=== PATIENT | female | born 1995 | race Two or more races ===

== ENCOUNTER 2018-06-03 15:44 | Emergency (ER) | payer MEDICAID ==
[~2018-06-03] VITALS: Ht 154.9 cm; Wt 74.1 kg
[~2018-06-03 15:44] MED LIST: AMOX-580 PO; HYDR-4383 PO; IBUP-1984 PO; LEG1EACH99 MC; NO HOME MEDS; PHEN-786 PO
[2018-06-03 17:09] LABS: BASOPHILS % (AUTO) 0.1 % (0-1); EOSINOPHILS # (AUTO) 0.1 X10'3 (0-0.9); EOSINOPHILS % (AUTO) 1.5 % (0-6); HEMATOCRIT 42.4 % (35.0-45.0); HEMOGLOBIN 14.4 g/dl (12.0-16.0); LYMPHOCYTES # (AUTO) 2.3 X10'3 (1.1-4.8); LYMPHOCYTES % (AUTO) 26.5 % (21-51); MEAN CORPUSCULAR HEMOGLOBIN 31.9 PG (27.0-31.0); MEAN CORPUSCULAR VOLUME 93.8 FL (78-98); MEAN PLATELET VOLUME 8.3 FL (7.4-10.4); MONOCYTES # (AUTO) 0.5 X10'3 (0-0.9); MONOCYTES % (AUTO) 5.2 % (2-12); NEUTROPHILS # (AUTO) 5.9 X10'3 (1.8-7.7); NEUTROPHILS % (AUTO) 66.7 % (42-75); PLATELET COUNT 248 X10'3 (140-440); RED BLOOD COUNT 4.52 X10'6 (4.20-5.60); RED CELL DISTRIBUTION WIDTH 13.1 % (11.5-14.5); WHITE BLOOD COUNT 8.8 X10'3 (4.5-11.0)
[2018-06-03 17:14] LABS: URINE HCG NEGATIVE (NEG)
[2018-06-03 17:18] LABS: CLARITY,URINE SLIGHTLY CLOUDY (Clear); COLOR,URINE STRAW (Yellow); GLUCOSE, URINE NEGATIVE (Neg); KETONES,URINE TRACE mg/dl (Neg); LEUKOCYTE ESTERASE ,URINE NEGATIVE (Neg); NITRITES, URINE NEGATIVE (Neg); OCCULT BLOOD,URINE NEGATIVE (Neg); PROTEIN,URINE NEGATIVE (Neg); UROBILINOGEN,URINE 0.2 E.U/dL (0.2-1.0)
[2018-06-03 17:19] LABS: UA COLLECTION TYPE CLN CATCH MIDSTREAM
[2018-06-03 17:26] LABS: MUCUS STRANDS MODERATE /LPF (Neg); SQUAMOUS EPITHELIAL CELL,UR MODERATE /LPF (FEW)
[2018-06-03 17:27] LABS: BACTERIA,URINE 1+ /HPF (Neg); RBC,URINE 0-2 /HPF (0-2); WBC,URINE 0-4 /HPF (0-4)
[2018-06-03 17:29] LABS: ALANINE AMINOTRANSFERASE 20 U/L (12-78); ALBUMIN 4.3 G/DL (3.4-5.0); ALKALINE PHOSPHATASE 60 IU/L (46-116); ANION GAP 12 (8-16); ASPARTATE AMINO TRANSFERASE 15 U/L (10-37); BILIRUBIN,TOTAL 0.6 MG/DL (0.1-1.0); BLOOD UREA NITROGEN 12 MG/DL (7-18); BUN/CREATININE RATIO 13.6 (6.6-38.0); CALCIUM 9.1 MG/DL (8.5-10.1); CHLORIDE 100 MMOL/L (99-107); CREATININE 0.88 MG/DL (0.40-0.90); GLUCOSE 93 MG/DL (70-104); POTASSIUM 3.4 MMOL/L (3.5-5.1); SODIUM 135 MMOL/L (135-145); TOTAL CARBON DIOXIDE 22.6 MMOL/L (24-32); TOTAL PROTEIN 8.6 G/DL (6.4-8.2); eGFR 78 ML/MIN
[2018-06-03 17:42] LABS: PROTHROMBIN TIME 10.5 SECONDS (9.0-12.0)
[2018-06-03] MEDS ORDERED: SULF1TAB49 PO (18:57)
[2018-06-03] MEDS ORDERED: CEPH-572 PO (18:57)
[2018-06-03] MEDS ORDERED: HYDROcodone/acetaminophen 5mg/325mg tablet PO ONE (19:20)
[2018-06-03] MEDS ORDERED: IBUP-1985 PO (19:46)
[2018-06-03 19:54] VITALS: BP 130/71
[2018-06-03] MEDS ORDERED: HYDR-3965 PO (19:54)
== END 2018-06-03 19:56 | disposition home or self-care (01) ==
LOC: ER 15:50
DX: M94.0 Chondrocostal junction syndrome [Tietze] (principal); F12.90 Cannabis use, unspecified, uncomplicated; Z79.899 Other long term (current) drug therapy
CPT/HCPCS: 36415; 71045; 80053; 81001; 81025; 85025; 85610; 93005; 99284

== ENCOUNTER 2018-09-08 12:01 | Emergency (ER) | payer MEDICAID ==
[~2018-09-08] VITALS: Ht 154.9 cm; Wt 64.0 kg
[~2018-09-08 12:01] MED LIST changes: +IBUP-1985 PO
[2018-09-08 12:11] VITALS: BP 147/83
[2018-09-08] MEDS ORDERED: AMOX500C2 PO (13:05)
[2018-09-08] MEDS ORDERED: TRAM50TA2 PO (13:05)
[2018-09-08] MEDS ORDERED: CHLO473M3 PO (13:05)
== END 2018-09-08 13:20 | disposition home or self-care (01) ==
LOC: ER 12:01
DX: S03.2XXA Dislocation of tooth, initial encounter (principal); F12.90 Cannabis use, unspecified, uncomplicated; Z98.890 Other specified postprocedural states; Z79.899 Other long term (current) drug therapy; W22.8XXA Striking against or struck by other objects, initial encounter; Y93.89 Activity, other specified; Y92.89 Other specified places as the place of occurrence of the external cause; Y99.8 Other external cause status
CPT/HCPCS: 99283

== ENCOUNTER 2019-05-01 17:03 | Emergency (ER) | payer MEDICAID ==
[~2019-05-01] VITALS: Ht 154.9 cm; Wt 70.9 kg
[~2019-05-01 17:03] MED LIST changes: +CHLO473M3 PO
[2019-05-01 17:34] VITALS: BP 121/75
[2019-05-01 19:53] LABS: ALANINE AMINOTRANSFERASE 53 U/L (12-78); ALBUMIN 3.6 G/DL (3.4-5.0); ALBUMIN/GLOBULIN RATIO 0.9 (1.1-1.5); ALKALINE PHOSPHATASE 99 IU/L (46-116); ANION GAP 5 (8-16); ASPARTATE AMINO TRANSFERASE 26 U/L (10-37); BASOPHILS % (AUTO) 0.4 % (0-1); BILIRUBIN,TOTAL 0.3 MG/DL (0.1-1.0); BLOOD UREA NITROGEN 19 MG/DL (7-18); BUN/CREATININE RATIO 20.4 (6.6-38.0); CALCIUM 9.3 MG/DL (8.5-10.1); CHLORIDE 104 MMOL/L (99-107); CREATININE 0.93 MG/DL (0.40-0.90); EOSINOPHILS # (AUTO) 0.2 X10'3 (0-0.9); EOSINOPHILS % (AUTO) 2.5 % (0-6); GLUCOSE 88 MG/DL (70-104); HEMOGLOBIN 13.3 g/dl (12.0-16.0); LYMPHOCYTES # (AUTO) 3.1 X10'3 (1.1-4.8); LYMPHOCYTES % (AUTO) 42.7 % (21-51); MEAN CORPUSCULAR HEMOGLOBIN 32.1 PG (27.0-31.0); MEAN CORPUSCULAR HGB CONC 33.3 g/dL (33.0-36.5); MEAN CORPUSCULAR VOLUME 96.3 FL (78-98); MEAN PLATELET VOLUME 7.8 FL (7.4-10.4); MONOCYTES # (AUTO) 0.3 X10'3 (0-0.9); MONOCYTES % (AUTO) 4.5 % (2-12); NEUTROPHILS # (AUTO) 3.7 X10'3 (1.8-7.7); NEUTROPHILS % (AUTO) 49.9 % (42-75); PLATELET COUNT 350 X10'3 (140-440); POTASSIUM 4.2 MMOL/L (3.5-5.1); RED BLOOD COUNT 4.15 X10'6 (4.20-5.60); SODIUM 138 MMOL/L (135-145); TOTAL CARBON DIOXIDE 29.5 MMOL/L (24-32); TOTAL PROTEIN 7.8 G/DL (6.4-8.2); WHITE BLOOD COUNT 7.3 X10'3 (4.5-11.0); eGFR 73 ML/MIN
[2019-05-01 20:34] LABS: CLARITY,URINE CLEAR (Clear); COLOR,URINE STRAW (Yellow); GLUCOSE, URINE NEGATIVE (Neg); KETONES,URINE NEGATIVE (Neg); LEUKOCYTE ESTERASE ,URINE LARGE (Neg); NITRITES, URINE NEGATIVE (Neg); OCCULT BLOOD,URINE LARGE (Neg); PROTEIN,URINE NEGATIVE (Neg); UROBILINOGEN,URINE 0.2 E.U/dL (0.2-1.0)
[2019-05-01 20:35] LABS: UA COLLECTION TYPE CLN CATCH MIDSTREAM
[2019-05-01 21:19] LABS: BACTERIA,URINE FEW /HPF (Neg); MUCUS STRANDS FEW /LPF (Neg); RBC,URINE 0-2 /HPF (0-2); SQUAMOUS EPITHELIAL CELL,UR FEW /LPF (FEW)
== END 2019-05-01 20:59 | disposition home or self-care (01) ==
LOC: ER 17:04
DX: O90.89 Other complications of the puerperium, not elsewhere classified (principal); R51 Headache; R20.0 Anesthesia of skin; F12.90 Cannabis use, unspecified, uncomplicated; Z87.820 Personal history of traumatic brain injury
CPT/HCPCS: 36415; 80053; 81001; 85025; 99283

== ENCOUNTER 2019-06-29 15:50 | Emergency (ER) | payer MEDICAID ==
[~2019-06-29] VITALS: Ht 154.9 cm; Wt 72.7 kg
[2019-06-29 16:12] VITALS: BP 126/70
[2019-06-29 18:03] LABS: URINE HCG NEGATIVE (NEG)
[2019-06-29 18:07] LABS: CLARITY,URINE CLEAR (Clear); COLOR,URINE YELLOW (Yellow); GLUCOSE, URINE NEGATIVE (Neg); KETONES,URINE NEGATIVE (Neg); LEUKOCYTE ESTERASE ,URINE NEGATIVE (Neg); NITRITES, URINE NEGATIVE (Neg); OCCULT BLOOD,URINE NEGATIVE (Neg); PH,URINE 6.5 (4.8-8.0); PROTEIN,URINE NEGATIVE (Neg)
[2019-06-29 18:09] LABS: UA COLLECTION TYPE CLN CATCH MIDSTREAM
== END 2019-06-29 18:48 | disposition home or self-care (01) ==
LOC: ER 15:51
DX: R10.2 Pelvic and perineal pain (principal); F12.90 Cannabis use, unspecified, uncomplicated
CPT/HCPCS: 36415; 81003; 81025; 87210; 87491; 87591; 99283; Q0112

== ENCOUNTER 2019-10-29 16:12 | Emergency (ER) | payer MEDICAID, OTHER ==
[~2019-10-29] VITALS: Ht 154.9 cm; Wt 80.0 kg
[2019-10-29] MEDS ORDERED: orphenadrine citrate 60mg/2ml inj. IM ONE (16:40)
[2019-10-29] MEDS ORDERED: ketorolac tromethamine 15mg/ml inj. IM ONE (16:40)
[2019-10-29 16:56] VITALS: BP 134/97
[2019-10-29] MEDS ORDERED: ondansetron 4mg rapidly disintigrating tab PO ONE (18:35)
[2019-10-29] MEDS ORDERED: morphine 4 MG/ML inj SYRINge IM ONE (18:35)
[2019-10-29] MEDS ORDERED: ORPH100T2 PO (19:35)
[2019-10-29] MEDS ORDERED: IBUP-1984 PO (19:35)
== END 2019-10-29 19:58 | disposition home or self-care (01) ==
LOC: ER 16:12
DX: S16.1XXA Strain of muscle, fascia and tendon at neck level, initial encounter (principal); M79.601 Pain in right arm; M54.2 Cervicalgia; F12.90 Cannabis use, unspecified, uncomplicated; Z98.890 Other specified postprocedural states; Z79.2 Long term (current) use of antibiotics; Z79.899 Other long term (current) drug therapy; W18.39XA Other fall on same level, initial encounter; Y93.89 Activity, other specified; Y92.89 Other specified places as the place of occurrence of the external cause; Y99.8 Other external cause status
CPT/HCPCS: 72125; 72141; 96372; 99285; J1885; J2270; J2360

== ENCOUNTER 2020-03-16 12:38 | Emergency (ER) | payer MEDICAID, OTHER ==
[~2020-03-16] VITALS: Ht 160 cm; Wt 80.0 kg
[~2020-03-16 12:38] MED LIST changes: +ORPH100T2 PO
[2020-03-16 13:16] VITALS: BP 132/83
[2020-03-16] MEDS ORDERED: AMOX-422 PO (13:45)
== END 2020-03-16 14:15 | disposition home or self-care (01) ==
LOC: ER 12:39
DX: J06.9 Acute upper respiratory infection, unspecified (principal); H66.91 Otitis media, unspecified, right ear; F12.90 Cannabis use, unspecified, uncomplicated; Z20.828 Contact with and (suspected) exposure to other viral communicable diseases; Z98.890 Other specified postprocedural states; Z79.899 Other long term (current) drug therapy
CPT/HCPCS: 36415; 87635; 99283

== ENCOUNTER 2021-02-11 12:10 | Emergency (ER) | payer MEDICAID ==
[~2021-02-11] VITALS: Ht 154.9 cm; Wt 72.7 kg
[2021-02-11 12:16] VITALS: BP 140/71
[2021-02-11] MEDS ORDERED: DOXY1TAB3 PO (13:32)
[2021-02-11] MEDS ORDERED: ondansetron 4mg rapidly disintigrating tab PO ONE (13:35)
== END 2021-02-11 13:42 | disposition home or self-care (01) ==
LOC: ER 12:11
DX: O21.9 Vomiting of pregnancy, unspecified (principal); O26.891 Other specified pregnancy related conditions, first trimester; R10.9 Unspecified abdominal pain; O99.321 Drug use complicating pregnancy, first trimester; F12.90 Cannabis use, unspecified, uncomplicated; Z79.899 Other long term (current) drug therapy; Z3A.01 Less than 8 weeks gestation of pregnancy
CPT/HCPCS: 99283

== ENCOUNTER 2021-02-23 19:30 | Emergency (ER) | payer MEDICAID ==
[~2021-02-23] VITALS: Ht 154.9 cm; Wt 72.7 kg
[~2021-02-23 19:30] MED LIST changes: +DOXY1TAB3 PO
[2021-02-23 21:24] LABS: BASOPHILS % (AUTO) 0.2 % (0-1); EOSINOPHILS % (AUTO) 0.2 % (0-6); HEMATOCRIT 39.6 % (35.0-45.0); HEMOGLOBIN 13.3 g/dl (12.0-16.0); LYMPHOCYTES # (AUTO) 1.6 X10'3 (1.1-4.8); LYMPHOCYTES % (AUTO) 16.2 % (21-51); MEAN CORPUSCULAR HEMOGLOBIN 31.6 PG (27.0-31.0); MEAN CORPUSCULAR HGB CONC 33.5 g/dL (33.0-36.5); MEAN CORPUSCULAR VOLUME 94.6 FL (78-98); MEAN PLATELET VOLUME 8.7 FL (7.4-10.4); MONOCYTES # (AUTO) 0.7 X10'3 (0-0.9); MONOCYTES % (AUTO) 7.6 % (2-12); NEUTROPHILS # (AUTO) 7.4 X10'3 (1.8-7.7); NEUTROPHILS % (AUTO) 75.8 % (42-75); PLATELET COUNT 274 X10'3 (140-440); RED BLOOD COUNT 4.19 X10'6 (4.20-5.60); RED CELL DISTRIBUTION WIDTH 12.6 % (11.5-14.5); WHITE BLOOD COUNT 9.8 X10'3 (4.5-11.0)
[2021-02-23 21:35] LABS: ANION GAP 15 (8-16); BLOOD UREA NITROGEN 9 MG/DL (7-18); BUN/CREATININE RATIO 13.2 (6.6-38.0); CHLORIDE 102 MMOL/L (99-107); CREATININE 0.68 MG/DL (0.40-0.90); GLUCOSE 103 MG/DL (70-104); POTASSIUM 3.4 MMOL/L (3.5-5.1); SODIUM 140 MMOL/L (135-145)
[2021-02-23 21:36] LABS: ALANINE AMINOTRANSFERASE 141 U/L (12-78); ALBUMIN 3.8 G/DL (3.4-5.0); ALBUMIN/GLOBULIN RATIO 0.8 (1.1-1.5); ALKALINE PHOSPHATASE 57 IU/L (46-116); ASPARTATE AMINO TRANSFERASE 47 U/L (10-37); BILIRUBIN,TOTAL 0.5 MG/DL (0.1-1.0); CALCIUM 9.4 MG/DL (8.5-10.1); TOTAL PROTEIN 8.4 G/DL (6.4-8.2); eGFR > 90 ML/MIN
[2021-02-23 23:17] LABS: URINE HCG POSITIVE (NEG)
[2021-02-23 23:20] LABS: CLARITY,URINE SLIGHTLY CLOUDY (Clear); COLOR,URINE YELLOW (Yellow); UA COLLECTION TYPE CLN CATCH MIDSTREAM
[2021-02-23 23:22] LABS: GLUCOSE, URINE NEGATIVE (Neg); KETONES,URINE 80 mg/dl (Neg); NITRITES, URINE NEGATIVE (Neg); OCCULT BLOOD,URINE NEGATIVE (Neg); PROTEIN,URINE NEGATIVE (Neg)
[2021-02-23 23:23] LABS: BACTERIA,URINE FEW /HPF (Neg); LEUKOCYTE ESTERASE ,URINE NEGATIVE (Neg); RBC,URINE 0-2 /HPF (0-2); SQUAMOUS EPITHELIAL CELL,UR MODERATE /LPF (FEW); UROBILINOGEN,URINE >=8.0 E.U/dL (0.2-1.0); WBC,URINE 0-4 /HPF (0-4)
[2021-02-23] MEDS ORDERED: ONDA4TAB6 PO (23:26)
[2021-02-23] MEDS ORDERED: potassium Cl 20 mEq SR tablet PO ONE (23:30)
[2021-02-23] MEDS ORDERED: ondansetron 4mg rapidly disintigrating tab PO ONE (23:35)
[2021-02-23 23:53] VITALS: BP 145/98
== END 2021-02-23 23:55 | disposition home or self-care (01) ==
LOC: ER 19:30
DX: O21.9 Vomiting of pregnancy, unspecified (principal); O26.891 Other specified pregnancy related conditions, first trimester; R07.89 Other chest pain; Z3A.01 Less than 8 weeks gestation of pregnancy
CPT/HCPCS: 36415; 71045; 80053; 81001; 81025; 84484; 85025; 93005; 99285

== ENCOUNTER 2021-08-25 22:57 | Emergency (ER) | payer MEDICAID ==
[~2021-08-25] VITALS: Ht 154.9 cm; Wt 72.0 kg
[~2021-08-25 22:57] MED LIST changes: +ONDA4TAB6 PO
[2021-08-26] MEDS ORDERED: amoxicillin 250mg capsule PO ONE
[2021-08-26] MEDS ORDERED: acetaminophen 325mg tablet PO ONE
[2021-08-26] MEDS ORDERED: ketorolac trometh inj. 60 MG/2 ML VIAL IM ONE
[2021-08-26] MEDS ORDERED: ondansetron 4mg rapidly disintigrating tab PO ONE
[2021-08-26] MEDS ORDERED: HYDROcodone/acetaminophen 5mg/325mg tablet PO ONE
[2021-08-26] MEDS ORDERED: AMOX500C2 PO (00:01)
[2021-08-26 00:20] VITALS: BP 130/98
[2021-08-26] MEDS ORDERED: AMOX-117 PO (23:19)
[2021-08-26] MEDS ORDERED: ONDA4TAB12 PO (23:21)
== END 2021-08-26 00:23 | disposition home or self-care (01) ==
LOC: ER 22:57
DX: K08.89 Other specified disorders of teeth and supporting structures (principal); F12.90 Cannabis use, unspecified, uncomplicated; Z98.890 Other specified postprocedural states; Z79.2 Long term (current) use of antibiotics; Z79.899 Other long term (current) drug therapy
CPT/HCPCS: 96372; 99284; J1885

== ENCOUNTER 2021-08-26 21:56 | Emergency (ER) | payer MEDICAID ==
[~2021-08-26] VITALS: Ht 154.9 cm; Wt 91.2 kg
[~2021-08-26 21:56] MED LIST changes: +AMOX500C2 PO
[2021-08-26] MEDS ORDERED: ondansetron 4mg rapidly disintigrating tab PO ONE (22:20)
[2021-08-26] MEDS ORDERED: ondansetron 4mg rapidly disintigrating tab ONE (22:20)
[2021-08-26] MEDS ORDERED: proCHLORperazine 10 MG/2 ml inj IV ONE (22:40)
[2021-08-26] MEDS ORDERED: methylPREDNISolone sod succ 125mg/2ml vial IV ONE (22:40)
[2021-08-26] MEDS ORDERED: normal saline 1000ml 1,000 ML IV ONE (22:40)
[2021-08-26] MEDS ORDERED: morphine 4 MG/ML inj SYRINge IV ONE (22:40)
[2021-08-26] MEDS ORDERED: dexamethasone sod phosphate 10mg/ml inj IV STA (22:52)
[2021-08-26] MEDS ORDERED: AMOX-117 PO (23:19)
[2021-08-26] MEDS ORDERED: ONDA4TAB12 PO (23:21)
[2021-08-26] MEDS ORDERED: amox tr/potassium clavulanate 875/125mg TAB PO ONE (23:25)
[2021-08-27 00:04] VITALS: BP 141/91
== END 2021-08-27 00:08 | disposition home or self-care (01) ==
LOC: ER 21:57
DX: K08.89 Other specified disorders of teeth and supporting structures (principal); R11.2 Nausea with vomiting, unspecified; F12.90 Cannabis use, unspecified, uncomplicated; Z98.890 Other specified postprocedural states; Z79.2 Long term (current) use of antibiotics; Z79.899 Other long term (current) drug therapy
CPT/HCPCS: 96361; 96374; 96375; 99284; J0780; J1100; J2270; J7030

== ENCOUNTER 2022-01-18 20:47 | Emergency (ER) | payer MEDICAID ==
[~2022-01-18 20:47] MED LIST changes: -AMOX500C2 PO; +ONDA4TAB12 PO
== END 2022-01-18 21:33 | disposition left against medical advice (07) ==
LOC: ER 20:47
DX: R05.9 Cough, unspecified (principal); Z53.21 Procedure and treatment not carried out due to patient leaving prior to being seen by health care provider

== ENCOUNTER 2022-04-02 23:07 | Emergency (ER) | payer MEDICAID ==
[~2022-04-02] VITALS: Ht 154.9 cm; Wt 72.7 kg
[2022-04-03 02:44] LABS: CLARITY,URINE SLIGHTLY CLOUDY (Clear); COLOR,URINE YELLOW (Yellow); GLUCOSE, URINE NEGATIVE (Neg); KETONES,URINE >=80 mg/dl (Neg); LEUKOCYTE ESTERASE ,URINE NEGATIVE (Neg); NITRITES, URINE NEGATIVE (Neg); OCCULT BLOOD,URINE MODERATE (Neg); PROTEIN,URINE NEGATIVE (Neg); UROBILINOGEN,URINE 0.2 E.U/dL (0.2-1.0)
[2022-04-03 02:45] LABS: UA COLLECTION TYPE CLN CATCH MIDSTREAM; URINE HCG NEGATIVE (NEG)
[2022-04-03 02:53] LABS: BACTERIA,URINE 1+ /HPF (Neg); RBC,URINE 0-2 /HPF (0-2); WBC,URINE 0-4 /HPF (0-4)
[2022-04-03 02:54] LABS: MUCUS STRANDS FEW /LPF (Neg); SQUAMOUS EPITHELIAL CELL,UR MANY /LPF (FEW)
[2022-04-03] MEDS ORDERED: cyclobenzaprine 10mg tablet PO ONE (04:25)
[2022-04-03] MEDS ORDERED: morphine 4 MG/ML inj SYRINge IM ONE (04:25)
[2022-04-03] MEDS ORDERED: CYCL-1 PO (06:02)
[2022-04-03 06:23] VITALS: BP 157/86
== END 2022-04-03 06:27 | disposition home or self-care (01) ==
LOC: ER 23:07
DX: S39.012A Strain of muscle, fascia and tendon of lower back, initial encounter (principal); I10 Essential (primary) hypertension; F41.9 Anxiety disorder, unspecified; F12.90 Cannabis use, unspecified, uncomplicated; Z98.890 Other specified postprocedural states; Z79.2 Long term (current) use of antibiotics; Z79.899 Other long term (current) drug therapy; X58.XXXA Exposure to other specified factors, initial encounter; Y93.89 Activity, other specified; Y92.89 Other specified places as the place of occurrence of the external cause; Y99.8 Other external cause status
CPT/HCPCS: 81001; 81025; 96372; 99285; J2270

== ENCOUNTER 2022-06-10 17:39 | Emergency (ER) | payer MEDICAID ==
[~2022-06-10] VITALS: Ht 154.9 cm; Wt 82.0 kg
[~2022-06-10 17:39] MED LIST changes: +CYCL-1 PO
[2022-06-10 17:47] VITALS: BP 137/82
[2022-06-10] MEDS ORDERED: CEPH-585 PO (18:58)
[2022-06-10] MEDS ORDERED: bacitracin 15gm ointment TP ONE (19:00)
[2022-06-10] MEDS ORDERED: cephalexin 250mg capsule PO ONE (19:00)
== END 2022-06-10 19:18 | disposition home or self-care (01) ==
LOC: ER 17:40
DX: L02.211 Cutaneous abscess of abdominal wall (principal); I10 Essential (primary) hypertension; F41.9 Anxiety disorder, unspecified; F12.90 Cannabis use, unspecified, uncomplicated; Z98.890 Other specified postprocedural states; Z79.899 Other long term (current) drug therapy
CPT/HCPCS: 99283

== ENCOUNTER 2023-01-27 21:17 | Emergency (ER) | payer MEDICAID ==
[~2023-01-27] VITALS: Ht 154.9 cm; Wt 89.0 kg
[~2023-01-27 21:17] MED LIST changes: +CEPH-585 PO; -ORPH100T2 PO; +ORPH100T4 PO
[2023-01-27 21:23] VITALS: TEMP 99.8
[2023-01-27 21:53] LABS: BASOPHILS % (AUTO) 0.4 % (0-1); EOSINOPHILS # (AUTO) 0.1 X10'3 (0-0.9); EOSINOPHILS % (AUTO) 1.8 % (0-6); HEMATOCRIT 40.3 % (35.0-45.0); HEMOGLOBIN 13.5 g/dl (12.0-16.0); LYMPHOCYTES # (AUTO) 1.6 X10'3 (1.1-4.8); LYMPHOCYTES % (AUTO) 30.3 % (21-51); MEAN CORPUSCULAR HGB CONC 33.6 g/dL (33.0-36.5); MEAN CORPUSCULAR VOLUME 92.3 FL (78-98); MEAN PLATELET VOLUME 8.1 FL (7.4-10.4); MONOCYTES # (AUTO) 0.7 X10'3 (0-0.9); MONOCYTES % (AUTO) 12.8 % (2-12); NEUTROPHILS # (AUTO) 2.9 X10'3 (1.8-7.7); NEUTROPHILS % (AUTO) 54.7 % (42-75); PLATELET COUNT 259 X10'3 (140-440); RED BLOOD COUNT 4.37 X10'6 (4.20-5.60); WHITE BLOOD COUNT 5.4 X10'3 (4.5-11.0)
[2023-01-27 22:02] LABS: ALANINE AMINOTRANSFERASE 25 U/L (12-78); ALBUMIN 3.7 G/DL (3.4-5.0); ALBUMIN/GLOBULIN RATIO 0.9 (1.1-1.5); ALKALINE PHOSPHATASE 79 IU/L (46-116); ANION GAP 10 (8-16); ASPARTATE AMINO TRANSFERASE 15 U/L (10-37); BILIRUBIN,TOTAL 0.4 MG/DL (0.1-1.0); BLOOD UREA NITROGEN 9 MG/DL (7-18); CALCIUM 9.5 MG/DL (8.5-10.1); CHLORIDE 102 MMOL/L (99-107); GLUCOSE 107 MG/DL (70-104); POTASSIUM 3.2 MMOL/L (3.5-5.1); SODIUM 140 MMOL/L (135-145); TOTAL CARBON DIOXIDE 27.7 MMOL/L (24-32); eCRCL 63 ML/MIN; eGFR 66 ML/MIN
[2023-01-27 22:10] LABS: PRO BRAIN NATRIURETIC PEPTIDE 119 PG/ML (0-125)
[2023-01-27] MEDS ORDERED: benzonatate 100mg capsule PO ONE (22:30)
[2023-01-27] MEDS ORDERED: ondansetron 4mg rapidly disintigrating tab PO ONE (22:30)
[2023-01-27] MEDS ORDERED: ketorolac trometh. 30mg/ml inj. IM ONE (22:30)
[2023-01-28] MEDS ORDERED: NIRM1TAB PO (00:11)
[2023-01-28 00:44] VITALS: BP 124/75; PULSE 90; O2SAT 98
[2023-01-28 00:47] VITALS: RESP 18
== END 2023-01-28 00:48 | disposition home or self-care (01) ==
LOC: ER 21:18
DX: U07.1 COVID-19 (principal); J02.9 Acute pharyngitis, unspecified; I10 Essential (primary) hypertension; F12.90 Cannabis use, unspecified, uncomplicated; Z88.0 Allergy status to penicillin; Z79.1 Long term (current) use of non-steroidal anti-inflammatories (NSAID); Z79.2 Long term (current) use of antibiotics; Z79.899 Other long term (current) drug therapy
CPT/HCPCS: 36415; 71045; 80053; 83880; 84484; 85025; 87502; 87503; 87811; 93005; 96372; 99285; J1885

== ENCOUNTER 2023-05-25 20:38 | Emergency (ER) | payer MEDICAID ==
[~2023-05-25] VITALS: Ht 154.9 cm; Wt 68.2 kg
[~2023-05-25 20:38] MED LIST changes: +NIRM1TAB PO
[2023-05-25] MEDS ORDERED: CLIN300C3 PO (21:51)
[2023-05-25] MEDS ORDERED: clindamycin (21:51)
[2023-05-25] MEDS ORDERED: clindamycin 150mg capsule PO ONE (21:55)
[2023-05-25] MEDS ORDERED: acetaminophen 325mg tablet PO ONE (22:15)
[2023-05-25 22:27] VITALS: BP 132/89; PULSE 90; RESP 16; TEMP 98.1; O2SAT 98
== END 2023-05-25 22:30 | disposition home or self-care (01) ==
LOC: ER 20:39
DX: K08.89 Other specified disorders of teeth and supporting structures (principal); I10 Essential (primary) hypertension; F12.90 Cannabis use, unspecified, uncomplicated; Z98.890 Other specified postprocedural states; Z79.899 Other long term (current) drug therapy; Z79.2 Long term (current) use of antibiotics
CPT/HCPCS: 99283

== ENCOUNTER 2023-06-02 18:11 | Emergency (ER) | payer MEDICAID ==
[~2023-06-02] VITALS: Ht 154.9 cm; Wt 72.7 kg
[~2023-06-02 18:11] MED LIST changes: +CLIN300C3 PO; +clindamycin
[2023-06-02 18:41] VITALS: BP 139/82; PULSE 74; RESP 16; TEMP 98.5; O2SAT 100
[2023-06-02 21:27] LABS: URINE HCG NEGATIVE (NEG)
[2023-06-02 21:29] LABS: BILIRUBIN,URINE NEGATIVE (Neg); CLARITY,URINE TURBID (Clear); COLOR,URINE YELLOW (Yellow); GLUCOSE, URINE NEGATIVE (Neg); KETONES,URINE NEGATIVE (Neg); LEUKOCYTE ESTERASE ,URINE NEGATIVE (Neg); NITRITES, URINE NEGATIVE (Neg); OCCULT BLOOD,URINE SMALL (Neg); PROTEIN,URINE NEGATIVE (Neg); UROBILINOGEN,URINE 0.2 E.U/dL (0.2-1.0)
[2023-06-02 21:35] LABS: UA COLLECTION TYPE CLN CATCH MIDSTREAM
[2023-06-02 21:37] LABS: SQUAMOUS EPITHELIAL CELL,UR FEW /LPF (FEW)
[2023-06-02 21:39] LABS: AMORPHOUS URATES 4+; BACTERIA,URINE 1+ /HPF (Neg); RBC,URINE 0-2 /HPF (0-2); WBC,URINE 0-4 /HPF (0-4)
[2023-06-02] MEDS ORDERED: acetaminophen 325mg tablet PO ONE (22:55)
== END 2023-06-02 23:19 | disposition home or self-care (01) ==
LOC: ER 18:12
DX: N93.8 Other specified abnormal uterine and vaginal bleeding (principal); R10.31 Right lower quadrant pain; I10 Essential (primary) hypertension; F41.9 Anxiety disorder, unspecified; F12.10 Cannabis abuse, uncomplicated; Z79.899 Other long term (current) drug therapy; Z88.0 Allergy status to penicillin
CPT/HCPCS: 36415; 81001; 81025; 87210; 87491; 87591; 99284; Q0112

== ENCOUNTER 2023-12-22 12:32 | Emergency (ER) | payer MEDICAID ==
[~2023-12-22] VITALS: Ht 154.9 cm; Wt 84.2 kg
[~2023-12-22 12:32] MED LIST changes: -CEPH-585 PO; +CHLO473M13 PO; -CHLO473M3 PO; -CLIN300C3 PO; +ONDA-243 PO; -ONDA4TAB12 PO
[2023-12-22 13:27] LABS: BASOPHILS % (AUTO) 0.1 % (0-1); EOSINOPHILS # (AUTO) 0.1 X10'3 (0-0.9); EOSINOPHILS % (AUTO) 0.5 % (0-6); HEMOGLOBIN 14.8 g/dl (12.0-16.0); LYMPHOCYTES # (AUTO) 0.8 X10'3 (1.1-4.8); MEAN CORPUSCULAR HEMOGLOBIN 31.4 PG (27.0-31.0); MEAN CORPUSCULAR HGB CONC 33.6 g/dL (33.0-36.5); MEAN CORPUSCULAR VOLUME 93.2 FL (78-98); MONOCYTES # (AUTO) 0.4 X10'3 (0-0.9); MONOCYTES % (AUTO) 3.8 % (2-12); NEUTROPHILS # (AUTO) 9.6 X10'3 (1.8-7.7); NEUTROPHILS % (AUTO) 88.6 % (42-75); PLATELET COUNT 271 X10'3 (140-440); RED BLOOD COUNT 4.72 X10'6 (4.20-5.60); RED CELL DISTRIBUTION WIDTH 13.1 % (11.5-14.5); WHITE BLOOD COUNT 10.8 X10'3 (4.5-11.0)
[2023-12-22 13:40] LABS: ALANINE AMINOTRANSFERASE 18 U/L (12-78); ALBUMIN/GLOBULIN RATIO 0.9 (1.1-1.5); ALKALINE PHOSPHATASE 67 IU/L (46-116); AMYLASE 42 U/L (25-115); ANION GAP 8 (8-16); ASPARTATE AMINO TRANSFERASE 11 U/L (10-37); BILIRUBIN,TOTAL 0.8 MG/DL (0.1-1.0); BLOOD UREA NITROGEN 10 MG/DL (7-18); BUN/CREATININE RATIO 10.5 (10.0-20.0); CALCIUM 9.3 MG/DL (8.5-10.1); CHLORIDE 104 MMOL/L (99-107); CREATININE 0.95 MG/DL (0.40-0.90); GLUCOSE 123 MG/DL (70-104); LIPASE 26 U/L (16-77); POTASSIUM 3.7 MMOL/L (3.5-5.1); SODIUM 137 MMOL/L (135-145); TOTAL CARBON DIOXIDE 24.7 MMOL/L (24-32); TOTAL PROTEIN 8.4 G/DL (6.4-8.2); eCRCL 65 ML/MIN; eGFR 69 ML/MIN
[2023-12-22] MEDS: ondansetron/PF 4mg/2ml inj IV ONE (17:07)
[2023-12-22] MEDS: normal saline 1000ML IV soln IVB ONE (17:07)
[2023-12-22 19:05] LABS: URINE HCG NEGATIVE (NEG)
[2023-12-22 19:08] LABS: BILIRUBIN,URINE NEGATIVE (Neg); CLARITY,URINE CLEAR (Clear); COLOR,URINE YELLOW (Yellow); GLUCOSE, URINE NEGATIVE (Neg); KETONES,URINE 40 mg/dl (Neg); LEUKOCYTE ESTERASE ,URINE NEGATIVE (Neg); NITRITES, URINE NEGATIVE (Neg); OCCULT BLOOD,URINE NEGATIVE (Neg); PROTEIN,URINE NEGATIVE (Neg)
[2023-12-22 19:23] LABS: UA COLLECTION TYPE CLN CATCH MIDSTREAM
[2023-12-22] MEDS ORDERED: ONDA-243 PO (20:21)
[2023-12-22 20:35] VITALS: BP 123/83; PULSE 68; RESP 14; TEMP 98; O2SAT 100
== END 2023-12-22 20:39 | disposition home or self-care (01) ==
LOC: ER 12:33
DX: O21.9 Vomiting of pregnancy, unspecified (principal); I10 Essential (primary) hypertension; F41.9 Anxiety disorder, unspecified; F12.90 Cannabis use, unspecified, uncomplicated; Z3A.00 Weeks of gestation of pregnancy not specified; Z88.0 Allergy status to penicillin; Z79.2 Long term (current) use of antibiotics; Z79.1 Long term (current) use of non-steroidal anti-inflammatories (NSAID); Z79.899 Other long term (current) drug therapy
CPT/HCPCS: 36415; 80053; 81003; 81025; 82150; 83690; 85025; 96374; 99285; J2405; J7030